=== PATIENT | male | born 1965 ===

== ENCOUNTER 2017-03-20 09:36 | Emergency (ER) | payer OTHER ==
[~2017-03-20] VITALS: Ht 175.3 cm; Wt 79.0 kg
[~2017-03-20 09:36] MED LIST: AMLO-114 PO; CALC600T9 PO; GLGKIT; GLUCOSE; INSDGI SC; INSHRI SC; INSUINJ14 SC; INSUINJ4 SC; LEVO-217 PO; METO25TA56 PO; MYCOPHENOLATE PO; OMEP20TA PO; TACR1CAP PO
[2017-03-20] MEDS ORDERED: SUCCINYLCHOLINE CHLORIDE 20 MG/ML 10 ML VIAL IV ONE (09:38)
[2017-03-20] MEDS ORDERED: LORAZEPAM 2 MG/ML 1 ML VIAL IV ONE (09:38)
[2017-03-20] MEDS ORDERED: ETOMIDATE 2 MG/ML 20 ML VIAL IV ONE (09:38)
[2017-03-20 09:42] VITALS: Ht 175.3 cm; Wt 79.0 kg
[2017-03-20] MEDS ORDERED: LORAZEPAM 2 MG/ML 1 ML VIAL ONE (10:27)
[2017-03-20] MEDS ORDERED: DEXTROSE 50% 50 ML SYR ONE (10:30)
[2017-03-20] MEDS ORDERED: LORAZEPAM 2 MG/ML 1 ML VIAL IV STA (10:32)
[2017-03-20] MEDS ORDERED: RAPID SEQUENCE INDUCTION BAG ONE (10:39)
[2017-03-20] MEDS ORDERED: DEXTROSE 50% 50 ML SYR IV ONE (10:45)
[2017-03-20] MEDS ORDERED: OPTIRAY 320 IV PRN (10:45)
[2017-03-20] MEDS ORDERED: VECURONIUM BROMIDE 10 MG VIAL IV STA ×2 (10:47→13:03)
[2017-03-20 10:51] LABS: ISTAT CREATININE 3.3 mg/dl (0.6-1.3); ISTAT HEMOGLOBIN 12.9 g/dl (14.0-18.0); ISTAT IONIZED CALCIUM 1.13 mmol/l (1.12-1.32)
--- NOTE | 2017-03-20 10:51 | EMERGENCY ROOM VISIT NOTE ---
ED Visit Note First contact with patient: 09:54 Due to the inability to obtain emergent access an IO was placed in the right tibia. D50 and Ativan were given via the IO. Endotracheal Intubation Indication Status epilepticus. The patient was on 100% oxygen via NRB prior to the procedure. Suction, airway equipment, RSI drugs, respiratory equipment, and appropriate personnel were prepared prior to the initiation of the procedure. A time out was taken. Induction was performed with Etomidate and Succynlcholine. After observing the clinical benefit of the medications, the airway was easily visualized utilizing a Glidescope. A 7.5 size ETT tube was placed atraumatically to 24 cm using standard technique. The cuff inflated without signs of malfunction. There were bilateral breath sounds, positive colormetric change, no gastric sounds, a good capnography waveform, and post procedure pulse oximetry was 100%. Post intubation sedation and paralysis was administered using vecuronium and propofol. There were no complications. This is a 51-year-old male who presents emergency department complaining of shortness of breath. He was originally seen by Leyla Kim please see her notes for details. Called to room because patient began seizing. At that time a sugar was obtained and found to be 40. He was then given dextrose with no improvement in the seizing. The patient was having agonal respirations and was also given Ativan. The decision was made to intubate the patient as above. GENERAL: Patient is a ill-appearing well-nourished male in acute distress HEAD: Normocephalic atraumatic EYES: Ocular movements intact, glass eye on left; Rt eye reactive to light OROPHARYNX mucous membranes are moist no exudates present no erythema or edema present NECK: Supple no nuchal rigidity CHEST: Good equal expansion LUNGS: Clear and equal to auscultation CARDIAC: Normal S1 and S2 ABDOMEN: Soft nontender no guarding BACK: No CVA tenderness EXTREMITIES: +2 pitting edema NEURO: Unresponsive This is a 51-year-old male who has a history of kidney transplant and pancreas transplant. He is on tacrolimus and CellCept. He is in acute distress. He was intubated and found to have an ammonia level that was grossly elevated. In addition the patient is in acute renal failure. He began receiving fluids and I suspect his tacrolimus level is grossly high due to the renal failure. He was loaded with Keppra. He was pancultured and started on antibiotics. I also discussed the case with the ICU who felt that the patient will be better served at [facility] due to the patient's history of renal transplant there. I did discuss the case with the on-call transplant team. The patient was transferred to [facility]. He received vecuronium as well as propofol boluses to control his blood pressure in the emergency department. I have personally spent greater than 90 minutes of critical care time in the direct management of this patient. This includes bedside care, interpretation of diagnostic studies, and testing, discussion with consultants, patient, and family members, and other required patient management activities. This 90 minutes is in excess of all separately billable procedures.
[2017-03-20] MEDS ORDERED: FUROSEMIDE INJ 80 MG in SYRINGE 0 ML IV STA (10:53)
[2017-03-20] MEDS ORDERED: FUROSEMIDE 40 MG/4 ML VIAL ONE (10:54)
[2017-03-20] MEDS ORDERED: LEVETIRACETAM IV 1,000 MG in DEXTROSE 5% 100ML 100 ML IV ONE (11:00)
[2017-03-20] MEDS ORDERED: PROPOFOL IV EMULSION 10 MG/ML 100 ML VIAL IV PRN (11:00)
--- NOTE | 2017-03-20 11:00 | DIAGNOSTIC IMAGING REPORT ---
SINGLE VIEW CHEST CLINICAL HISTORY: Respiratory failure. FINDINGS: An AP, portable, supine chest radiograph is obtained. No prior studies are available for comparison at the time of dictation. The examination is degraded by portable technique and patient rotation. An endotracheal tube has been placed. The tip projects 3.5 cm above the sallie. The cardiomediastinal silhouette is unremarkable. There are low lung volumes. Patchy airspace consolidation is suggested at the left lung base. The right lung appears clear. A small left pleural effusion is suspected. No pneumothorax is seen. The bony thorax is grossly intact. IMPRESSION: 1. An endotracheal tube has been placed. The tip projects 3.5 cm above the sallie. 2. Left basilar consolidation is identified and a left pleural effusion is suspected. Correlate clinically for evidence of pneumonia. Electronically signed by: Rob Titus M.D. 03/20/2017 10:59 AM Dictated Date/Time: 03/20/2017 10:58 AM
[2017-03-20 11:02] LABS: HEMATOCRIT 36.3 % (42-52); MEAN CELL VOLUME 88.3 fL (80-100); MEAN CORPUSCULAR HEMOGLOBIN 28.7 pg (25-34); MEAN CORPUSCULAR HGB CONC 32.5 g/dl (32-36); MEAN PLATELET VOLUME 10.8 fL (7.4-10.4); PLATELET COUNT 132 K/uL (130-400); RED BLOOD COUNT 4.11 M/uL (4.7-6.1); WHITE BLOOD COUNT 7.77 K/uL (4.8-10.8)
[2017-03-20] MEDS ORDERED: DEXTROSE 50% 50 ML SYR IV STA (11:06)
[2017-03-20 11:12] LABS: BUN/CREATININE RATIO 22.3 (10-20); CALCIUM 8.1 mg/dl (8.5-10.1); CREATININE 3.36 mg/dl (0.60-1.40); MAGNESIUM 2.4 mg/dl (1.8-2.4); PHOSPHORUS 4.8 mg/dl (2.5-4.9); POTASSIUM 3.4 mmol/L (3.5-5.1)
[2017-03-20 11:17] LABS: ALB/GLOB RATIO 1.3 (0.9-2)
--- NOTE | 2017-03-20 11:29 | EMERGENCY ROOM VISIT NOTE ---
History First contact with patient: 09:54 Chief Complaint: EDEMA TO EXTREMITY Stated Complaint: CHANELL FAILURE History of Present Illness The patient is a 51 year old male who presents to the Emergency Room from [facility] accompanied by 2 guards with complaints of bilateral lower extremity edema, weight gain over the past few days. According to documentation from the medical provider at the senior living, there is also concern for renal failure. Patient has medical history significant for type 1 diabetes, history of kidney and pancreas transplant [address] [facility] on antirejection medication, hypertension, CRF. Patient reports that he has been feeling tired and run down , having some increased shortness of breath, and significant swelling. He estimates he has gained more than 15-20 pounds in the last week. He states he has not been making very much urine, but states it has not been dark, denies any dysuria, urinary frequency, or hematuria. He denies any chest pain, dizziness or syncope, abdominal pain, back pain, diarrhea, bloody or black stools, or skin complaints. Review of Systems A complete 10 point review of systems was reviewed with the patient with pertinent positives and negatives as per history of present illness. All else were negative. Past Medical/Surgical History Medical Problems: (1) History of appendectomy (2) History of renal transplant (3) Hypothyroidism (4) Status post pancreatic transplant (5) Status post renal transplant Social History Smoking Status: Former Smoker Current/Historical Medications Scheduled Amlodipine (Norvasc), 10 MG PO DAILY Calcium Carbonate-Vitamin D (Calcium + D), 600 MG PO BID Insulin (Humulin R), 10 UNITS SC QID Insulin Aspart (Novolog Penfill), 2 UNITS SC ACHS Insulin Glargine (Lantus), 10 UNITS SC BID Insulin Glargine (Lantus Solostar Pen), 5 UNIT SC DAILY Levothyroxine (Levothroid), 0.05 MG PO DAILY Metoprolol Tartrate (Lopressor) (Lopressor), 25 MG PO BID Omeprazole (Omeprazole), 20 MG PO DAILY Tacrolimus (Prograf), 1 MG PO DAILY Tacrolimus (Prograf), 1 MG PO DAILY [Mycophenolate], 500 MG PO BID Miscellaneous Medications Glucagon (Glucagon Emergency Kit) [Glucose] Physical Exam Vital Signs Date Time Temp Pulse Resp B/P (MAP) Pulse Ox O2 Delivery O2 Flow Rate FiO2 03/20/17 13:57 37.1 102 12 173/105 100 03/20/17 13:40 107 12 178/103 100 Mechanical Ventilator 03/20/17 13:30 101 12 169/103 99 Mechanical Ventilator 03/20/17 13:15 102 12 182/105 100 Mechanical Ventilator 03/20/17 13:06 90 12 139/94 100 Mechanical Ventilator 03/20/17 13:01 93 12 166/100 100 Mechanical Ventilator 03/20/17 12:56 94 12 173/102 100 Mechanical Ventilator 03/20/17 12:51 94 12 170/99 100 Mechanical Ventilator 03/20/17 12:46 96 12 169/104 100 Mechanical Ventilator 03/20/17 12:41 101 12 178/97 100 Mechanical Ventilator 03/20/17 12:36 103 12 184/102 100 Mechanical Ventilator 03/20/17 12:31 103 12 179/100 100 Mechanical Ventilator 03/20/17 12:26 97 12 176/99 03/20/17 12:11 105 12 170/99 03/20/17 11:57 113 12 154/97 100 03/20/17 11:56 177/98 03/20/17 11:51 174/104 03/20/17 11:42 120 12 171/115 100 Mechanical Ventilator 03/20/17 11:35 117 12 202/114 99 Mechanical Ventilator 03/20/17 11:31 124 0 191/110 99 03/20/17 11:28 113 03/20/17 11:28 203/106 03/20/17 11:12 123 03/20/17 11:05 104 12 164/103 100 Mechanical Ventilator 03/20/17 11:00 107 12 170/98 100 Mechanical Ventilator 03/20/17 10:55 124 12 218/117 100 Mechanical Ventilator 03/20/17 10:47 107 12 177/102 100 Mechanical Ventilator 03/20/17 10:45 60 03/20/17 09:42 37.0 80 16 143/87 98 Room Air Physical Exam CONSTITUTIONAL: Drowsy, but easily aroused, oriented X 4. Dehydrated. Poor dentition. HEENT: Normocephalic, atraumatic. Pupils equal, round and reactive to light, EOMI. 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 TMs normal. Pharynx normal. Dry mucous membranes. NECK: Supple, full active range of motion without discomfort. RESPIRATORY: Diminished in the bases bilaterally, fine crackles, with no wheezing, rhonchi , or stridor. Equal expansion bilaterally. CARDIOVASCULAR: Regular rate and rhythm, 3/6 systolic murmur, no rubs or gallops. +2 distal pulses all 4 extremities. +4 pitting edema bilateral lower extremities extending up to hips. GASTROINTESTINAL: Mildly distended, positive fluid wave. Mildly tender throughout. Hypoactive bowel sounds in all quadrants. MUSCULOSKELETAL: Full range of motion of all joints without discomfort. INTEGUMENTARY: No rash or other significant dermatologic conditions noted. NEUROLOGIC: Cranial nerves II-XII grossly intact. Generalized weakness, but no focal neurologic deficits noted. Normal speech. No clonus or hyperreflexia. Medical Decision & Procedures ER Provider Diagnostic Interpretation: SINGLE VIEW CHEST CLINICAL HISTORY: Respiratory failure. FINDINGS: An AP, portable, supine chest radiograph is obtained. No prior studies are available for comparison at the time of dictation. The examination is degraded by portable technique and patient rotation. An endotracheal tube has been placed. The tip projects 3.5 cm above the sallie. The cardiomediastinal silhouette is unremarkable. There are low lung volumes. Patchy airspace consolidation is suggested at the left lung base. The right lung appears clear. A small left pleural effusion is suspected. No pneumothorax is seen. The bony thorax is grossly intact. IMPRESSION: 1. An endotracheal tube has been placed. The tip projects 3.5 cm above the sallie. 2. Left basilar consolidation is identified and a left pleural effusion is suspected. Correlate clinically for evidence of pneumonia. ----- HEAD WITHOUT CONTRAST (CT) CT DOSE: 1306.20 mGy.cm HISTORY: Mental status change altered mental status TECHNIQUE: Multiaxial CT images of the head were performed without the use of intravenous contrast. A dose lowering technique was utilized adhering to the principles of ALARA. Comparison: None. Findings: The paranasal sinuses and mastoid air cells are clear. The calvarium and skull base are intact. The ventricles and sulci are within normal limits. There is no mass, hematoma, midline shift, or acute infarct. Impression: No acute intracranial abnormality. ----- CT OF THE CHEST WITHOUT IV CONTRAST CLINICAL HISTORY: Altered mental status. Renal failure. COMPARISON STUDY: Chest radiograph March 20, 2017. TECHNIQUE: Axial images of the chest were obtained without IV contrast. Images were reviewed in the axial, sagittal, and coronal planes. IV contrast was not administered for this examination. A dose lowering technique was utilized adhering to the principles of ALARA. FINDINGS: The tip of the endotracheal tube is 2.7 cm above the sallie. The heart is mildly enlarged. There is no pericardial effusion. There is a trace right pleural effusion. There is extensive bilateral lower lobe airspace opacity with volume loss, greater on the left. There is no pneumothorax. No suspicious osseous lesion is present. There is no pneumomediastinum. Azygos vein is dilated. The abdomen and pelvis will be reported separately. There is apparent calcification within portions of the hepatic veins and IVC. IMPRESSION: 1. Appropriate positioning of the endotracheal tube. 2. Extensive bilateral lower lobe airspace opacity with volume loss. Right lower lobe opacity reflects atelectasis while left lower lobe opacity could reflect atelectasis or pneumonia. Follow-up chest CT in one month to ensure resolution is recommended. Trace right pleural effusion. No pneumothorax. ----- CT SCAN OF THE ABDOMEN AND PELVIS WITHOUT IV CONTRAST CLINICAL HISTORY: Acute renal insufficiency. Multiorgan failure. COMPARISON STUDY: No priors. TECHNIQUE: CT scan of the abdomen and pelvis is performed from the lung bases to the proximal femora. Images are reviewed in the axial, sagittal, and coronal planes. IV contrast was not administered for this examination. Note that the examination is suboptimal without IV contrast. The examination is also significantly limited by motion artifact as well as by streak artifact from the patient's arms which could not be elevated above the abdomen. A dose lowering technique was utilized adhering to the principles of ALARA. FINDINGS: Lung bases: The heart is top normal in size and without pericardial effusion. There are small pleural effusions with bibasilar consolidation, left greater than right. There is a small hiatal hernia. Liver: Evaluation of the liver significantly degraded by streak artifact. The unenhanced liver is cirrhotic in morphology and heterogeneous in attenuation. There is nodularity of the hepatic surface contour. The caudate lobe is markedly enlarged. A calcified structure extends from the IVC into the left hepatic vein. This is of indeterminant significance and is likely chronic. There is no intrahepatic biliary ductal dilatation. Gallbladder: There are numerous calcified gallstones. There is no convincing CT evidence of acute cholecystitis. Spleen: The spleen is enlarged, measuring 15.7 cm in length. Pancreas: The unenhanced pancreas is atrophic and not well evaluated. There is peripancreatic stranding which may be related to mesenteric edema. Adrenal glands: Unremarkable. Kidneys: The unenhanced diomede kidneys are markedly atrophic and without hydronephrosis. There are no renal calculi identified. There is no evidence of contour deforming renal mass lesion. The renal vasculature is densely calcified. Abdominal vasculature: The abdominal aorta is normal in course and caliber noting moderate to advanced atherosclerotic calcification. Bowel: There is moderate colonic fecal retention. No bowel obstruction is identified. The appendix is not visualized. Peritoneum: There is a small volume of abdominopelvic ascites. No intraperitoneal free air is seen. Lymphadenopathy: There are numerous enlarged retroperitoneal lymph nodes. A periaortic node on image #193 measures 1.3 cm in short axis. Pelvic viscera: The bladder is partially decompressed around a Antonio catheter. The bladder wall appears markedly thickened and there are foci of intraluminal gas. Pericystic inflammation is noted. The prostate gland is normal as visualized. A calcified soft tissue structure in the right hemipelvis may represent an atrophic renal transplant. A left pelvic renal transplant is normal in size and without hydronephrosis. There is perinephric stranding identified around the left pelvic transplant. Skeletal structures: The skeletal structures are osteopenic. Mild lumbosacral spondylosis is observed. No lytic or blastic lesions are seen. Soft tissues: There is body wall edema. Caput medusae are noted in the abdominal wall. IMPRESSION: 1. Significantly streak and motion compromised examination. The examination is also suboptimal without oral and IV contrast. 2. Small pleural effusions with bibasilar consolidation, left larger than right. This could represent atelectasis and/or pneumonia. Clinical correlation will be required. 3. The liver is cirrhotic in morphology and heterogeneous in attenuation. 4. There is a small volume of abdominopelvic ascites as well as body wall edema. 5. Splenomegaly. Caput Medusae are noted in the ventral abdominal wall. 6. The bladder wall is markedly thickened and there is pericystic inflammation. Correlate clinically and with urinalysis for evidence of cystitis. 7. A left pelvic renal transplant is identified. There is no hydronephrosis. Again, correlation with clinical findings and urinalysis will be required. 8. Cholelithiasis. 9. There is mesenteric edema. Stranding around the pancreas is nonspecific and may be related to mesenteric edema/fluid overload. Correlation with serum lipase levels is recommended. 10. Moderate constipation. 11. Mildly enlarged retroperitoneal lymph nodes are identified. 12. Additional findings as above. Laboratory Results 03/20/17 10:33 Red Blood Count 4.11, Mean Corpuscular Volume 88.3, Mean Corpuscular Hemoglobin 28.7, Mean Corpuscular Hemoglobin Concent 32.5, Mean Platelet Volume 10.8, Neutrophils (%) (Auto) 71.0, Lymphocytes (%) (Auto) 14.0, Monocytes (%) (Auto) 13.4, Eosinophils (%) (Auto) 0.8, Basophils (%) (Auto) 0.3, Neutrophils # (Auto ) 5.52, Lymphocytes # (Auto) 1.09, Monocytes # (Auto) 1.04, Eosinophils # (Auto ) 0.06, Basophils # (Auto) 0.02 03/20/17 10:33 Test 03/20/17 10:33 03/20/17 10:36 03/20/17 11:00 03/20/17 11:27 White Blood Count 7.77 K/uL (4.8-10.8) Red Blood Count 4.11 M/uL (4.7-6.1) Hemoglobin 11.8 g/dL (14.0-18.0) Hematocrit 36.3 % (42-52) Mean Corpuscular Volume 88.3 fL (80-100) Mean Corpuscular Hemoglobin 28.7 pg (25-34) Mean Corpuscular Hemoglobin Concent 32.5 g/dl (32-36) Platelet Count 132 K/uL (130-400) Mean Platelet Volume 10.8 fL (7.4-10.4) Neutrophils (%) (Auto) 71.0 % Lymphocytes (%) (Auto) 14.0 % Monocytes (%) (Auto) 13.4 % Eosinophils (%) (Auto) 0.8 % Basophils (%) (Auto) 0.3 % Neutrophils # (Auto) 5.52 K/uL (1.4-6.5) Lymphocytes # (Auto) 1.09 K/uL (1.2-3.4) Monocytes # (Auto) 1.04 K/uL (0.11-0.59) Eosinophils # (Auto) 0.06 K/uL (0-0.5) Basophils # (Auto) 0.02 K/uL (0-0.2) RDW Standard Deviation 53.2 fL (36.4-46.3) RDW Coefficient of Variation 16.3 % (11.5-14.5) Immature Granulocyte % (Auto) 0.5 % Immature Granulocyte # (Auto) 0.04 K/uL (0.00-0.02) Anisocytosis PRESENT Ovalocytes 1+ Echinocytes 1+ Est Creatinine Clear Calc Drug Dose 26.6 ml/min Estimated GFR () 23.6 Estimated GFR (Non- 20.3 BUN/Creatinine Ratio 22.3 (10-20) Lactic Acid Level 7.7 mmol/L (0.4-2.0) Calcium Level 8.1 mg/dl (8.5-10.1) Phosphorus Level 4.8 mg/dl (2.5-4.9) Magnesium Level 2.4 mg/dl (1.8-2.4) Total Bilirubin 1.1 mg/dl (0.2-1) Aspartate Amino Transf (AST/SGOT) 34 U/L (15-37) Alanine Aminotransferase (ALT/SGPT) 31 U/L (12-78) Alkaline Phosphatase 104 U/L (45-117) Ammonia 133.0 umol/L (11-32) Troponin I 0.062 ng/ml (0-0.045) Pro-B-Type Natriuretic Peptide 1150 pg/ml (0-450) Total Protein 6.8 gm/dl (6.4-8.2) Albumin 3.9 gm/dl (3.4-5.0) Globulin 2.9 gm/dl (2.5-4.0) Albumin/Globulin Ratio 1.3 (0.9-2) Lipase 84 U/L (73-393) Bedside Hemoglobin 12.9 g/dl (14.0-18.0) Bedside Hematocrit 38 % (42-52) Bedside Sodium 143 mEq/L (135-144) Bedside Potassium 3.6 mEq/L (3.3-5.0) Bedside Chloride 107 mEq/L (101-112) Bedside Total CO2 19 mEq/l (24-31) Anion Gap 21.0 mmol/L (16-25) Bedside Blood Urea Nitrogen 67 mg/dl (7-18) Bedside Creatinine 3.3 mg/dl (0.6-1.3) Bedside Glucose (other) 27 mg/dl (70-99) Bedside Ionized Calcium (Lyndsay) 1.13 mmol/l (1.12-1.32) Urine Color YELLOW Urine Appearance CLEAR (CLEAR) Urine pH 5.0 (4.5-7.5) Urine Specific [place] 1.016 (1.000-1.030) Urine Protein NEG (NEG) Urine Glucose (UA) NEG (NEG) Urine Ketones NEG (NEG) Urine Occult Blood NEG (NEG) Urine Nitrite NEG (NEG) Urine Bilirubin NEG (NEG) Urine Urobilinogen NEG (NEG) Urine Leukocyte Esterase NEG (NEG) Bedside Glucose 145 mg/dl (70-99) Test 03/20/17 12:08 Prothrombin Time 11.4 SECONDS (9.0-12.0) Prothromb Time International Ratio 1.1 (0.9-1.1) Activated Partial Thromboplast Time 26.3 SECONDS (21.0-31.0) Partial Thromboplastin Ratio 1.0 Arterial Blood pH 7.29 (7.35-7.45) Arterial Blood Partial Pressure CO2 47 mmHg (35-46) Arterial Blood Partial Pressure O2 208 mm/Hg (80-95) Arterial Blood HCO3 22 mmol/L (19-24) Arterial Blood Oxygen Saturation 99.5 % (90-95) Arterial Blood Base Excess -4.7 mEq/L (-9-1.8) Arterial Blood Gas Delivery 100% Juwan Test POS (POS) Medications Administered Medications (Trade) Dose Ordered Sig/Anh Route Start Time Stop Time Status Last Admin Dose Admin Lorazepam (Ativan Inj) 2 mg STK-MED ONCE .ROUTE 03/20/17 10:27 03/20/17 10:28 DC 03/20/17 10:27 2 MG Dextrose (Dextrose 50% 50ML Syringe) 50 ml STK-MED ONCE .ROUTE 03/20/17 10:30 03/20/17 10:31 DC 03/20/17 10:30 50 ML Miscellaneous (Rapid Sequence Induction Bag) 1 ea STK-MED ONCE N/A 03/20/17 10:39 03/20/17 10:40 DC 03/20/17 10:39 1 EA Vecuronium [place] (Vecuronium [place] Inj) 10 mg NOW STAT IV 03/20/17 10:47 03/20/17 10:49 DC 03/20/17 10:48 10 MG Propofol (Diprivan Iv Emulsion 100ml Vial) 1 dose UD PRN IV 03/20/17 11:00 03/20/17 14:39 DC 03/20/17 11:33 1 DOSE Levetiracetam 1000 mg/Dextrose 110 ml @ 440 mls/hr ONE ONCE IV 03/20/17 11:00 03/20/17 11:14 DC 03/20/17 11:32 440 MLS/HR Furosemide 80 mg/ Syringe 8 ml @ 4 mls/min NOW STAT IV 03/20/17 10:53 03/20/17 10:55 DC 03/20/17 11:37 4 MLS/MIN Dextrose (Dextrose 50% 50ML Syringe) 50 ml NOW STAT IV 03/20/17 11:06 03/20/17 11:07 DC 03/20/17 11:34 50 ML Dexamethasone Sodium Phosphate (Dexamethasone Inj Pf) 10 mg STK-MED ONCE .ROUTE 03/20/17 11:37 03/20/17 11:38 DC 03/20/17 11:39 10 MG Dexamethasone Sodium Phosphate 10 mg/Syringe 2.5 ml @ 1 mls/min NOW STAT IV 03/20/17 11:34 03/20/17 11:38 DC 03/20/17 12:30 1 MLS/MIN Ampicillin Sodium/ Sulbactam Sodium 3000 mg/Sodium Chloride 108 ml @ 200 mls/hr ONE ONCE IV 03/20/17 11:45 03/20/17 12:17 DC 03/20/17 12:56 200 MLS/HR Sodium Chloride 1,000 ml @ 999 mls/hr Q1H1M STAT IV 03/20/17 11:49 03/20/17 12:49 DC 03/20/17 11:49 999 MLS/HR ECG Indication: SOB/dyspnea Rate (beats per minute): 86 Rhythm: normal sinus Findings: no acute ischemic change, no ectopy Comparison ECG Date: no prior available Medical Decision CC: Patient presenting with complaint of bilateral lower extremity edema, weight gain, concern for renal failure Differential Diagnosis: Includes, but not limited to pulmonary edema, CHF exacerbation, pleural effusion, pneumonia, acute renal failure, liver failure, altered mental status, acute acute coronary syndrome, electrolyte abnormality, medication toxicity, bacteremia/sepsis, meningitis, encephalitis, among others. Medication Reconciliation: I attest that I have personally reviewed the patient' s current medication list. Vital signs review: I reviewed the patient's vital signs and interpret them as follows: T: Afebrile; BP: Hypertensive; HR: Within normal limits; RR: Within normal limits; Pulse Ox: Within normal limits on room air. Summary: Patient was evaluated at bedside, history and physical exam performed. Patient is drowsy on initial exam, but wakens easily and is oriented with normal speech. Neuro exam is otherwise grossly intact with no focal deficits appreciated. Lungs are diminished with crackles in the bases, significant +4 pitting edema noted to the lower extremities concerning for fluid overload. Patient has diffuse abdominal tenderness, mild distention, and fluid wave. Given patient's immunocompromised state, I am concerned for possible infectious etiology as well as CHF exacerbation or renal failure given severe peripheral edema. Orders were placed at bedside for labs, UA and culture, blood cultures, lactic acid, chest x-ray to evaluate for pneumonia, EKG to evaluate for dysrhythmia, head CT to evaluate for altered mental status. I did speak with the nurse regarding a [id number] blood sugar as the patient is altered and has a history of hypoglycemia. Shortly after my assessment in the room, nursing called stating the patient was seizing. Dr. Lomeli and myself went to the bedside in A9 to reevaluate the patient, who is actively seizing. Patient was placed on a nonrebreather mask. Patient was promptly transported to room B1. IO access was initially achieved and the patient was given 2 mg Ativan. IV access was also obtained and labs were sent. POC i-STAT chem 8 was done and reviewed, noting acute renal failure with a creatinine of 3.3, no significant electrolyte abnormalities including a normal potassium level. Primary care glucose check noted significant hypoglycemia, IV dextrose given. Recheck of the blood glucose was 135. Additional labs concerning for acidosis of 7.7, ABG ordered for further evaluation. Patient did not have any significant improvement in mental status after the IV dextrose, continues to be agitated and combative. Dr. Lomeli made the decision to intubate the patient for airway management in this acutely altered patient. Please see his note for further details. CXR confirms placement of the endotracheal tube. No significant pulmonary edema , though there is question of a possible infiltrate suggestive of pneumonia. Recheck of the blood glucose is now 73, pt was given a second dextrose bolus. Patient given vecuronium, started on propofol drip, vitals stabilizing after bolus of propofol. Pt was deemed stable for transport to CT. CT being done noncontrast, due to patient's elevated creatinine. Results pending. Dr. Lomeli spoke with Dr. Flores, critical care medicine, who was also involved in the patient's care and recommended performing LP to evaluate for meningitis. Keppra was also started for seizure management and patient was placed on broad- spectrum antibiotics and acyclovir. Recommending transfer of the patient due to his history of transplant, and also possible need for continuous EEG, which we are unable to provide here. Plans for patient to be transported by air to [facility], where he previously had his transplant surgeries. Dr. Lomeli spoke with all consultants and accepting transfer physician, please see his documentation for further details. Patient was transferred by [facility], intubated and sedated, with stable vital signs at the time of transport. Head Trauma GCS Score: 14 GCS 8-9 persistently post-seizure activity. Medication Reconcilliation Current Medication List: was personally reviewed by nd Blood Pressure Screening Patient's blood pressure: Elevated blood pressure Impression Primary Impression: Seizure Additional Impressions: Hypoglycemia Altered mental state Fluid overload Renal failure (ARF), acute on chronic Critical Care I have personally spent greater than 35 minutes of critical care time in the direct management of this patient. This includes bedside care, interpretation of diagnostic studies, and testing, discussion with consultants, patient, and family members, and other required patient management activities. This 35 minutes is in excess of all separately billable procedures. Departure Information Referrals Brenda LOPEZ (PCP) Patient Instructions My [facility] Problem Qualifiers Additional Impressions: Altered mental state Altered mental status type: somnolence Qualified Codes: R40.0 - Somnolence Fluid overload Hypervolemia type: other Qualified Codes: E87.79 - Other fluid overload Renal failure (ARF), acute on chronic Acute renal failure type: unspecified Chronic kidney disease stage: stage 3 (moderate) Qualified Codes: N17.9 - Acute kidney failure, unspecified; N18.3 - Chronic kidney disease, stage 3 (moderate)
[2017-03-20] MEDS ORDERED: ACYCLOVIR SOD INJ 500 MG in DEXTROSE 5% 100ML 100 ML IV STA (11:34)
[2017-03-20] MEDS ORDERED: VANCOMYCIN INJ 1,000 MG in SODIUM CHLORIDE 0.9% 250ML 250 ML IV STA (11:34)
[2017-03-20] MEDS ORDERED: CEFTRIAXONE SOD INJ 1 GM ADDVIAL IV STA (11:34)
[2017-03-20] MEDS ORDERED: DEXAMETHASONE INJ 10 MG in SYRINGE 0 ML IV STA (11:34)
--- NOTE | 2017-03-20 11:34 | DIAGNOSTIC IMAGING REPORT ---
HEAD WITHOUT CONTRAST (CT) CT DOSE: 1306.20 mGy.cm HISTORY: Mental status change altered mental status TECHNIQUE: Multiaxial CT images of the head were performed without the use of intravenous contrast. A dose lowering technique was utilized adhering to the principles of ALARA. Comparison: None. Findings: The paranasal sinuses and mastoid air cells are clear. The calvarium and skull base are intact. The ventricles and sulci are within normal limits. There is no mass, hematoma, midline shift, or acute infarct. Impression: No acute intracranial abnormality. The above report was generated using voice recognition software. It may contain grammatical, syntax or spelling errors. Electronically signed by: Trevon Clay M.D. 03/20/2017 11:32 AM Dictated Date/Time: 03/20/2017 11:29 AM
[2017-03-20] MEDS ORDERED: DEXAMETHASONE **PF** INJ 10 MG/ML VIAL ONE (11:37)
[2017-03-20 11:38] LABS: URINE APPEARANCE CLEAR (CLEAR); URINE COLOR YELLOW; URINE SPECIFIC GRAVITY 1.016 (1.000-1.030)
[2017-03-20 11:39] LABS: MANUAL MICROSCOPIC REQUIRED? NO; REVIEW REQ? NO; URINE BILIRUBIN NEG (NEG); URINE NITRITE NEG (NEG); UROBILINOGEN NEG (NEG); ZZUR CULT IF INDIC CLEAN CATCH NO
[2017-03-20] MEDS ORDERED: AMPICILLIN/SULBACTAM SOD INJ 3,000 MG in SODIUM CHLORIDE 0.9% 100ML 100 ML IV ONE (11:45)
--- NOTE | 2017-03-20 11:47 | DIAGNOSTIC IMAGING REPORT ---
CT OF THE CHEST WITHOUT IV CONTRAST CLINICAL HISTORY: Altered mental status. Renal failure. COMPARISON STUDY: Chest radiograph March 20, 2017. TECHNIQUE: Axial images of the chest were obtained without IV contrast. Images were reviewed in the axial, sagittal, and coronal planes. IV contrast was not administered for this examination. A dose lowering technique was utilized adhering to the principles of ALARA. FINDINGS: The tip of the endotracheal tube is 2.7 cm above the sallie. The heart is mildly enlarged. There is no pericardial effusion. There is a trace right pleural effusion. There is extensive bilateral lower lobe airspace opacity with volume loss, greater on the left. There is no pneumothorax. No suspicious osseous lesion is present. There is no pneumomediastinum. Azygos vein is dilated. The abdomen and pelvis will be reported separately. There is apparent calcification within portions of the hepatic veins and IVC. IMPRESSION: 1. Appropriate positioning of the endotracheal tube. 2. Extensive bilateral lower lobe airspace opacity with volume loss. Right lower lobe opacity reflects atelectasis while left lower lobe opacity could reflect atelectasis or pneumonia. Follow-up chest CT in one month to ensure resolution is recommended. Trace right pleural effusion. No pneumothorax. Electronically signed by: Chester Spain M.D. 03/20/2017 11:45 AM Dictated Date/Time: 03/20/2017 11:32 AM
[2017-03-20] MEDS ORDERED: SODIUM CHLORIDE 0.9% 1000ML 1,000 ML IV STA (11:49)
--- NOTE | 2017-03-20 11:56 | DIAGNOSTIC IMAGING REPORT ---
CT SCAN OF THE ABDOMEN AND PELVIS WITHOUT IV CONTRAST CLINICAL HISTORY: Acute renal insufficiency. Multiorgan failure. COMPARISON STUDY: No priors. TECHNIQUE: CT scan of the abdomen and pelvis is performed from the lung bases to the proximal femora. Images are reviewed in the axial, sagittal, and coronal planes. IV contrast was not administered for this examination. Note that the examination is suboptimal without IV contrast. The examination is also significantly limited by motion artifact as well as by streak artifact from the patient's arms which could not be elevated above the abdomen. A dose lowering technique was utilized adhering to the principles of ALARA. FINDINGS: Lung bases: The heart is top normal in size and without pericardial effusion. There are small pleural effusions with bibasilar consolidation, left greater than right. There is a small hiatal hernia. Liver: Evaluation of the liver significantly degraded by streak artifact. The unenhanced liver is cirrhotic in morphology and heterogeneous in attenuation. There is nodularity of the hepatic surface contour. The caudate lobe is markedly enlarged. A calcified structure extends from the IVC into the left hepatic vein. This is of indeterminant significance and is likely chronic. There is no intrahepatic biliary ductal dilatation. Gallbladder: There are numerous calcified gallstones. There is no convincing CT evidence of acute cholecystitis. Spleen: The spleen is enlarged, measuring 15.7 cm in length. Pancreas: The unenhanced pancreas is atrophic and not well evaluated. There is peripancreatic stranding which may be related to mesenteric edema. Adrenal glands: Unremarkable. Kidneys: The unenhanced [place] kidneys are markedly atrophic and without hydronephrosis. There are no renal calculi identified. There is no evidence of contour deforming renal mass lesion. The renal vasculature is densely calcified. Abdominal vasculature: The abdominal aorta is normal in course and caliber noting moderate to advanced atherosclerotic calcification. Bowel: There is moderate colonic fecal retention. No bowel obstruction is identified. The appendix is not visualized. Peritoneum: There is a small volume of abdominopelvic ascites. No intraperitoneal free air is seen. Lymphadenopathy: There are numerous enlarged retroperitoneal lymph nodes. A periaortic node on image #193 measures 1.3 cm in short axis. Pelvic viscera: The bladder is partially decompressed around a Antonio catheter. The bladder wall appears markedly thickened and there are foci of intraluminal gas. Pericystic inflammation is noted. The prostate gland is normal as visualized. A calcified soft tissue structure in the right hemipelvis may represent an atrophic renal transplant. A left pelvic renal transplant is normal in size and without hydronephrosis. There is perinephric stranding identified around the left pelvic transplant. Skeletal structures: The skeletal structures are osteopenic. Mild lumbosacral spondylosis is observed. No lytic or blastic lesions are seen. Soft tissues: There is body wall edema. Caput medusae are noted in the abdominal wall. IMPRESSION: 1. Significantly streak and motion compromised examination. The examination is also suboptimal without oral and IV contrast. 2. Small pleural effusions with bibasilar consolidation, left larger than right. This could represent atelectasis and/or pneumonia. Clinical correlation will be required. 3. The liver is cirrhotic in morphology and heterogeneous in attenuation. 4. There is a small volume of abdominopelvic ascites as well as body wall edema. 5. Splenomegaly. Caput Medusae are noted in the ventral abdominal wall. 6. The bladder wall is markedly thickened and there is pericystic inflammation. Correlate clinically and with urinalysis for evidence of cystitis. 7. A left pelvic renal transplant is identified. There is no hydronephrosis. Again, correlation with clinical findings and urinalysis will be required. 8. Cholelithiasis. 9. There is mesenteric edema. Stranding around the pancreas is nonspecific and may be related to mesenteric edema/fluid overload. Correlation with serum lipase levels is recommended. 10. Moderate constipation. 11. Mildly enlarged retroperitoneal lymph nodes are identified. 12. Additional findings as above. Electronically signed by: Rob Titus M.D. 03/20/2017 11:55 AM Dictated Date/Time: 03/20/2017 11:39 AM
[2017-03-20 12:05] LABS: ANISOCYTOSIS PRESENT; BASO % 0.3 %; BASO ABS # 0.02 K/uL (0-0.2); COMPLETE YES; ECHINOCYTES 1+; EOS % 0.8 %; IG% 0.5 %; LYMPH ABS # 1.09 K/uL (1.2-3.4); MONO % 13.4 %; OVALOCYTES 1+
--- NOTE | 2017-03-20 12:09 | Procedure Note ---
Procedure Note Date of Service Mar 20, 2017. Procedure Note Critical Care Medicine Procedure Date: 03/20/17 Procedure: Lumbar puncture Pre-procedure Diagnosis: Seizure immunocompromise, transplant patient Post-procedure Diagnosis: same as above Prior to Procedure: Informed Consent: 2 physician emergent consent Attending Staff: Maria De Jesus Flores DO Resident/Physician Auto Job Estimator: Benny Erazo Indications: [name] is a [age sex] patient with [] The identity of the patient was confirmed and a bedside time out was performed. Patient's medication reconciliation was reviewed and the patient is not on anti-platelet meds nor anticoagulants. CT scan of the brain was reviewed, no mass lesion identified, no major contraindication for LP, given seizure and immunocompromise, we decided to proceed with LP. Description of Procedure: Patient was positioned in the right decubitus position, prepped and draped in usual sterile fashion. The L3-4 interspace was attempted without success x 2 passes, then the L4-5 space located with bilateral iliac crests as landmarks. 1 % Lidocaine without epinephrine was used to anesthetize the area. A 18 gauge spinal needle was introduced into the subarachnoid space. Stylet was removed with bloody fluid return. Needle removed after adequate fluid collected and sterile bandage placed at puncture site. Opening pressure was unable to be maintained, 0.5 mL of CSF fluid collected. Fluid was frankly bloody. Specimen(s): sent for Gram Stain, culture. Complications: None Findings: traumatic LP. Estimated Blood Loss: trace
--- NOTE | 2017-03-20 12:17 | DIAGNOSTIC IMAGING REPORT ---
SINGLE VIEW CHEST CLINICAL HISTORY: Intubation. FINDINGS: An AP, portable, supine chest radiograph is comparison study performed earlier the same day 03/20/2017. The examination is degraded by portable technique and patient rotation. Endotracheal tube is unchanged in position. The cardiomediastinal silhouette is unremarkable. There are low lung volumes. There are small pleural effusions. Consolidation is again suggestive the left lung base. No pneumothorax is seen. The bony thorax is grossly intact. IMPRESSION: 1. The endotracheal tube is unchanged in position. 2. There are small pleural effusions and left basilar airspace opacities, similar to previous. Electronically signed by: Rob Titus M.D. 03/20/2017 12:16 PM Dictated Date/Time: 03/20/2017 12:15 PM
[2017-03-20 12:22] LABS: ALLEN TEST POS (POS); ARTERIAL BLD GAS O2 SATURATION 99.5 % (90-95); ARTERIAL BLOOD GAS BASE EXCESS -4.7 mEq/L (-9-1.8); ARTERIAL BLOOD GAS HCO3 22 mmol/L (19-24); ARTERIAL BLOOD GAS PO2 208 mm/Hg (80-95); ARTERIAL BLOOD GAS pH 7.29 (7.35-7.45); O2 ADMINISTRATION 100%
--- NOTE | 2017-03-20 12:27 | Critical Care Consultation ---
Critical Care Consultation Date of Consultation: Mar 20, 2017. Attending Physician: Juwan Dunbar Reason for Consultation: Transplant patient with recurrent seizures and acute renal failure History of Present Illness Patient is a 51 male who is a [facility] of the [facility] who is a kidney pancreas transplant. Per report from the ED physician the pancreas transplant had failed , according to senior living records the patient has had a 10 pound weight gain over the last 3-4 days. He was initially seen in room A1 and started to have tonic- clonic seizure-like activity. He was treated with benzodiazepines, he was found to have a low blood sugar. He was aggressively treated with dextrose and had recurrent seizure activity. Given the patient's somnolence the ED physician proceeded with securing the patient's airway. I was requested to evaluate the patient. Patient appears to be on mycophenolate and tacrolimus for antirejection meds. Given the acute kidney injury certainly tacrolimus toxicity and possibly CellCept could be contributing to seizure-like activity. Given his immunocompromise is certainly prudent to cover him with broad- spectrum antibiotics for possible meningitis. We do not have capability to provide continuous EEG monitoring nor do we have a transplant service. He would be best suited at [facility] who completed his transplant. We attempted to obtain an LP prior to antibiotic administration. Past Medical/Surgical History Per prior records status post kidney and pancreas transplant Social History Unable to obtain secondary to patient intubated Smoking Status: Former Smoker Allergies Coded Allergies: No Known Allergies (Unverified , 01/07/13) Home Medications Scheduled Amlodipine (Norvasc), 10 MG PO DAILY Calcium Carbonate-Vitamin D (Calcium + D), 600 MG PO BID Insulin (Humulin R), 10 UNITS SC QID Insulin Aspart (Novolog Penfill), 2 UNITS SC ACHS Insulin Glargine (Lantus), 10 UNITS SC BID Insulin Glargine (Lantus Solostar Pen), 5 UNIT SC DAILY Levothyroxine (Levothroid), 0.05 MG PO DAILY Metoprolol Tartrate (Lopressor) (Lopressor), 25 MG PO BID Omeprazole (Omeprazole), 20 MG PO DAILY Tacrolimus (Prograf), 1 MG PO DAILY Tacrolimus (Prograf), 1 MG PO DAILY [Mycophenolate], 500 MG PO BID Miscellaneous Medications Glucagon (Glucagon Emergency Kit) [Glucose] Current Inpatient Medications Current Inpatient Medications Medications (Trade) Dose Ordered Sig/Anh Route Start Time Stop Time Status Last Admin Dose Admin Ioversol (Optiray 320) 100 ml UD PRN IV 03/20/17 10:45 03/24/17 10:44 Propofol (Diprivan Iv Emulsion 100ml Vial) 1 dose UD PRN IV 03/20/17 11:00 03/23/17 10:59 03/20/17 11:33 1 DOSE Vancomycin HCl 1000 mg/Sodium Chloride 270 ml @ 125 mls/hr NOW STAT IV 03/20/17 11:34 03/20/17 13:43 Ampicillin Sodium/ Sulbactam Sodium 3000 mg/Sodium Chloride 108 ml @ 200 mls/hr ONE ONCE IV 03/20/17 11:45 03/20/17 12:17 Acyclovir Sodium 500 mg/Dextrose 110 ml @ 110 mls/hr Q8H STAT IV 03/20/17 11:34 03/20/17 12:33 Sodium Chloride 1,000 ml @ 999 mls/hr Q1H1M STAT IV 03/20/17 11:49 03/20/17 12:49 03/20/17 11:49 999 MLS/HR Review of Systems Unable to obtain secondary to patient being intubated Physical Exam Date Time Temp Pulse Resp B/P (MAP) Pulse Ox O2 Delivery O2 Flow Rate FiO2 03/20/17 11:42 120 12 171/115 100 Mechanical Ventilator 03/20/17 11:35 117 12 202/114 99 Mechanical Ventilator 03/20/17 11:31 124 0 191/110 99 03/20/17 11:28 113 03/20/17 11:28 203/106 03/20/17 11:12 123 03/20/17 09:42 37.0 80 16 143/87 98 Room Air General Appearance: other (intubated and sedated) Head: normocephalic, atraumatic Eyes: other (pupils equal and reactive to light) ENT: other (endotracheal tube in place clear secretions) Neck: trachea midline, supple, no thyromegaly Respiratory: breath sounds normal Cardiovasular: regular rate/rhythm, normal S1S2 Abdomen: other (prior surgical scars, mass felt in left lower quadrant consistent with kidney transplant) Genitourinary - Male: external genitalia normal, other (Antonio catheter present) Back: other (2+ presacral edema) Upper Extremities: no edema, other (small abrasion to the left wrist in the area where the patient had handcuffs) Pulses: femoral (R) (2+), femoral (L) (2+) Neuro: other (heavily sedated) Psychiatric: other (unable to evaluate) Laboratory Results Last 24 Hours Test 03/20/17 10:33 03/20/17 10:36 03/20/17 11:00 03/20/17 11:28 White Blood Count 7.77 K/uL Red Blood Count 4.11 M/uL Hemoglobin 11.8 g/dL Hematocrit 36.3 % Mean Corpuscular Volume 88.3 fL Mean Corpuscular Hemoglobin 28.7 pg Mean Corpuscular Hemoglobin Concent 32.5 g/dl Platelet Count 132 K/uL Mean Platelet Volume 10.8 fL Neutrophils (%) (Auto) 71.0 % Lymphocytes (%) (Auto) 14.0 % Monocytes (%) (Auto) 13.4 % Eosinophils (%) (Auto) 0.8 % Basophils (%) (Auto) 0.3 % Neutrophils # (Auto) 5.52 K/uL Lymphocytes # (Auto) 1.09 K/uL Monocytes # (Auto) 1.04 K/uL Eosinophils # (Auto) 0.06 K/uL Basophils # (Auto) 0.02 K/uL RDW Standard Deviation 53.2 fL RDW Coefficient of Variation 16.3 % Immature Granulocyte % (Auto) 0.5 % Immature Granulocyte # (Auto) 0.04 K/uL Anisocytosis PRESENT Ovalocytes 1+ Echinocytes 1+ Sodium Level 139 mmol/L Potassium Level 3.4 mmol/L Chloride Level 105 mmol/L Carbon Dioxide Level 19 mmol/L Anion Gap 15.0 mmol/L 21.0 mmol/L Blood Urea Nitrogen 75 mg/dl Creatinine 3.36 mg/dl Est Creatinine Clear Calc Drug Dose 26.6 ml/min Estimated GFR () 23.6 Estimated GFR (Non- 20.3 BUN/Creatinine Ratio 22.3 Random Glucose 30 mg/dl Lactic Acid Level 7.7 mmol/L Calcium Level 8.1 mg/dl Phosphorus Level 4.8 mg/dl Magnesium Level 2.4 mg/dl Total Bilirubin 1.1 mg/dl Aspartate Amino Transf (AST/SGOT) 34 U/L Alanine Aminotransferase (ALT/SGPT) 31 U/L Alkaline Phosphatase 104 U/L Ammonia 133.0 umol/L Troponin I 0.062 ng/ml Pro-B-Type Natriuretic Peptide 1150 pg/ml Total Protein 6.8 gm/dl Albumin 3.9 gm/dl Globulin 2.9 gm/dl Albumin/Globulin Ratio 1.3 Lipase 84 U/L Bedside Hemoglobin 12.9 g/dl Bedside Hematocrit 38 % Bedside Sodium 143 mEq/L Bedside Potassium 3.6 mEq/L Bedside Chloride 107 mEq/L Bedside Total CO2 19 mEq/l Bedside Blood Urea Nitrogen 67 mg/dl Bedside Creatinine 3.3 mg/dl Bedside Glucose (other) 27 mg/dl Bedside Ionized Calcium (Lyndsay) 1.13 mmol/l Urine Color YELLOW Urine Appearance CLEAR Urine pH 5.0 Urine Specific [place] 1.016 Urine Protein NEG Urine Glucose (UA) NEG Urine Ketones NEG Urine Occult Blood NEG Urine Nitrite NEG Urine Bilirubin NEG Urine Urobilinogen NEG Urine Leukocyte Esterase NEG Test 03/20/17 11:29 03/20/17 12:[address] SCAN OF THE ABDOMEN AND PELVIS WITHOUT IV CONTRAST CLINICAL HISTORY: Acute renal insufficiency. Multiorgan failure. COMPARISON STUDY: No priors. TECHNIQUE: CT scan of the abdomen and pelvis is performed from the lung bases to the proximal femora. Images are reviewed in the axial, sagittal, and coronal planes. IV contrast was not administered for this examination. Note that the examination is suboptimal without IV contrast. The examination is also significantly limited by motion artifact as well as by streak artifact from the patient's arms which could not be elevated above the abdomen. A dose lowering technique was utilized adhering to the principles of ALARA. FINDINGS: Lung bases: The heart is top normal in size and without pericardial effusion. There are small pleural effusions with bibasilar consolidation, left greater than right. There is a small hiatal hernia. Liver: Evaluation of the liver significantly degraded by streak artifact. The unenhanced liver is cirrhotic in morphology and heterogeneous in attenuation. There is nodularity of the hepatic surface contour. The caudate lobe is markedly enlarged. A calcified structure extends from the IVC into the left hepatic vein. This is of indeterminant significance and is likely chronic. There is no intrahepatic biliary ductal dilatation. Gallbladder: There are numerous calcified gallstones. There is no convincing CT evidence of acute cholecystitis. Spleen: The spleen is enlarged, measuring 15.7 cm in length. Pancreas: The unenhanced pancreas is atrophic and not well evaluated. There is peripancreatic stranding which may be related to mesenteric edema. Adrenal glands: Unremarkable. Kidneys: The unenhanced [place] kidneys are markedly atrophic and without hydronephrosis. There are no renal calculi identified. There is no evidence of contour deforming renal mass lesion. The renal vasculature is densely calcified. Abdominal vasculature: The abdominal aorta is normal in course and caliber noting moderate to advanced atherosclerotic calcification. Bowel: There is moderate colonic fecal retention. No bowel obstruction is identified. The appendix is not visualized. Peritoneum: There is a small volume of abdominopelvic ascites. No intraperitoneal free air is seen. Lymphadenopathy: There are numerous enlarged retroperitoneal lymph nodes. A periaortic node on image #193 measures 1.3 cm in short axis. Pelvic viscera: The bladder is partially decompressed around a Antonio catheter. The bladder wall appears markedly thickened and there are foci of intraluminal gas. Pericystic inflammation is noted. The prostate gland is normal as visualized. A calcified soft tissue structure in the right hemipelvis may represent an atrophic renal transplant. A left pelvic renal transplant is normal in size and without hydronephrosis. There is perinephric stranding identified around the left pelvic transplant. Skeletal structures: The skeletal structures are osteopenic. Mild lumbosacral spondylosis is observed. No lytic or blastic lesions are seen. Soft tissues: There is body wall edema. Caput medusae are noted in the abdominal wall. IMPRESSION: 1. Significantly streak and motion compromised examination. The examination is also suboptimal without oral and IV contrast. 2. Small pleural effusions with bibasilar consolidation, left larger than right. This could represent atelectasis and/or pneumonia. Clinical correlation will be required. 3. The liver is cirrhotic in morphology and heterogeneous in attenuation. 4. There is a small volume of abdominopelvic ascites as well as body wall edema. 5. Splenomegaly. Caput Medusae are noted in the ventral abdominal wall. 6. The bladder wall is markedly thickened and there is pericystic inflammation. Correlate clinically and with urinalysis for evidence of cystitis. 7. A left pelvic renal transplant is identified. There is no hydronephrosis. Again, correlation with clinical findings and urinalysis will be required. 8. Cholelithiasis. 9. There is mesenteric edema. Stranding around the pancreas is nonspecific and may be related to mesenteric edema/fluid overload. Correlation with serum lipase levels is recommended. 10. Moderate constipation. 11. Mildly enlarged retroperitoneal lymph nodes are identified. 12. Additional findings as above. CT OF THE CHEST WITHOUT IV CONTRAST CLINICAL HISTORY: Altered mental status. Renal failure. COMPARISON STUDY: Chest radiograph March 20, 2017. TECHNIQUE: Axial images of the chest were obtained without IV contrast. Images were reviewed in the axial, sagittal, and coronal planes. IV contrast was not administered for this examination. A dose lowering technique was utilized adhering to the principles of ALARA. FINDINGS: The tip of the endotracheal tube is 2.7 cm above the sallie. The heart is mildly enlarged. There is no pericardial effusion. There is a trace right pleural effusion. There is extensive bilateral lower lobe airspace opacity with volume loss, greater on the left. There is no pneumothorax. No suspicious osseous lesion is present. There is no pneumomediastinum. Azygos vein is dilated. The abdomen and pelvis will be reported separately. There is apparent calcification within portions of the hepatic veins and IVC. IMPRESSION: 1. Appropriate positioning of the endotracheal tube. 2. Extensive bilateral lower lobe airspace opacity with volume loss. Right lower lobe opacity reflects atelectasis while left lower lobe opacity could reflect atelectasis or pneumonia. Follow-up chest CT in one month to ensure resolution is recommended. Trace right pleural effusion. No pneumothorax. Electronically signed by: Chester Spain M.D. SINGLE VIEW CHEST CLINICAL HISTORY: Respiratory failure. FINDINGS: An AP, portable, supine chest radiograph is obtained. No prior studies are available for comparison at the time of dictation. The examination is degraded by portable technique and patient rotation. An endotracheal tube has been placed. The tip projects 3.5 cm above the sallie. The cardiomediastinal silhouette is unremarkable. There are low lung volumes. Patchy airspace consolidation is suggested at the left lung base. The right lung appears clear. A small left pleural effusion is suspected. No pneumothorax is seen. The bony thorax is grossly intact. IMPRESSION: 1. An endotracheal tube has been placed. The tip projects 3.5 cm above the sallie. 2. Left basilar consolidation is identified and a left pleural effusion is suspected. Correlate clinically for evidence of pneumonia. HEAD WITHOUT CONTRAST (CT) CT DOSE: 1306.20 mGy.cm HISTORY: Mental status change altered mental status TECHNIQUE: Multiaxial CT images of the head were performed without the use of intravenous contrast. A dose lowering technique was utilized adhering to the principles of ALARA. Comparison: None. Findings: The paranasal sinuses and mastoid air cells are clear. The calvarium and skull base are intact. The ventricles and sulci are within normal limits. There is no mass, hematoma, midline shift, or acute infarct. Impression: No acute intracranial abnormality. Assessment & Plan Reason Critically Ill: Patient is a 51-year-old male with history of multi- organ transplant on immunosuppressive agents, who presented with shortness of breath, acute kidney injury and developed seizure-like activity. PLAN: Neuro: Seizure-like activity * Loaded with Keppra * Attempted LP prior to antibiotic administration, traumatic tap * Started on ampicillin, ceftriaxone, vancomycin, acyclovir empirically Resp: Intubated Acute hypoxic respiratory failure secondary seizure CV: Hypertension * Likely multifactorial secondary to end-stage renal disease versus possible tacrolimus toxicity Fluids/Renal: History of renal transplant Acute kidney injury High gap metabolic acidosis * Generous fluid administration * D5 NSS at 100 an hour ID: Empiric antimicrobials including Rocephin, vancomycin, ampicillin, acyclovir GI/Nutrition: Nothing by mouth Cirrhotic morphology and intra-abdominal fluid accumulation Heme: Anemia Endocrine: Hypoglycemia * Likely secondary to seizure activity * Start dextrose-containing solution for transport Patient will be accepted to [facility] in transfer via helicopter EMS. I have personally spent 35 minutes of critical care time in the direct management of this patient. This is a life/limb threatening event. This includes time spent evaluating patient, direct bedside care, chart review, placing orders, interpretation of diagnostic studies, discussion with consultants, patient, and family members, as well as other required patient management activities. This time is exclusive of all separately billable procedures, and teaching time and separate from and in addition to any other critical care service time.
[2017-03-20] MEDS ORDERED: D5W AND NSS 1,000 ML IV SCH (12:30)
[2017-03-20 12:38] LABS: INR 1.1 (0.9-1.1); PROTHROMBIN TIME (PATIENT) 11.4 SECONDS (9.0-12.0)
[2017-03-20 13:57] VITALS: BP 173/105; PULSE 102; TEMP 37.1; O2SAT 100
[2017-03-24 05:47] LABS: FK506 TACROLIMUS HIGHLY SENS 3.2 MCG/L (5-20)
== END 2017-03-20 13:59 | disposition short-term general hospital (02) ==
LOC: C.EDB 09:37
DX: N17.9 Acute kidney failure, unspecified (principal); R56.9 Unspecified convulsions; E10.649 Type 1 diabetes mellitus with hypoglycemia without coma; E87.79 Other fluid overload; R40.0 Somnolence; N18.3 Chronic kidney disease, stage 3 (moderate); R41.82 Altered mental status, unspecified; E10.22 Type 1 diabetes mellitus with diabetic chronic kidney disease; I12.9 Hypertensive chronic kidney disease with stage 1 through stage 4 chronic kidney disease, or unspecified chronic kidney disease; E03.9 Hypothyroidism, unspecified; Z94.0 Kidney transplant status; Z94.83 Pancreas transplant status; Z79.4 Long term (current) use of insulin; Z79.899 Other long term (current) drug therapy; Z87.891 Personal history of nicotine dependence